=== PATIENT | male | born 1930 | race Caucasian/White ===

== ENCOUNTER 2017-03-08 17:29 | Emergency (ER) | payer MEDICARE ==
[2017-03-08] MEDS ORDERED: PROP150T PO (17:54)
[2017-03-08] MEDS ORDERED: PRAD150C PO (17:54)
[2017-03-08] MEDS ORDERED: LUPR45IN IM (17:54)
[2017-03-08] MEDS ORDERED: CALC600T60 PO (17:54)
[2017-03-08] MEDS ORDERED: XGEVINJ SC (17:54)
[2017-03-08] MEDS ORDERED: BENA40TA7 PO (17:54)
[2017-03-08] MEDS ORDERED: ALDA25TA PO (17:54)
[2017-03-08] MEDS ORDERED: ATOR40TA75 PO (17:54)
[2017-03-08 18:25] LABS: BASO % 0.4 % (0.0-1.0); EOS # 0.1 K/mm3 (0.0-0.50); EOS % 1.8 % (0.0-3.0); LARGE UNSTAINED CELL # 0.1 K/mm3 (0.0-0.4); LYMPH # 1.8 K/mm3 (1.5-4.5); LYMPH % 34.3 % (24.0-44.0); MEAN CORPUSCULAR HEMOGLOBIN 32.9 pg (27.0-33.0); MEAN CORPUSCULAR VOLUME 93.9 fl (80.0-96.0); MONO # 0.3 K/mm3 (0.0-0.8); MONO % 5.8 % (0.0-5.0); NEUTROPHILS # 2.9 K/mm3 (1.8-7.7); NEUTROPHILS % 55.8 % (36.0-66.0); RED CELL DISTRIBUTION WIDTH 12.3 % (11.5-14.5); WHITE BLOOD COUNT 5.2 K/mm3 (4.0-10.0)
[2017-03-08 18:26] LABS: PLATELET COUNT, AUTOMATED 46 k/mm3 (150-450)
--- NOTE | 2017-03-08 18:33 | REP ---
Clinical: Cough and dyspnea . Comparison: 01/21/2006 . Technique: PA and lateral. Findings: The mediastinum and cardiac silhouette are normal. The lung delatorre are clear and without acute consolidation, effusion, or pneumothorax. The skeletal structures are intact and normal. Impression: 1. No acute cardiopulmonary process. Signed by Terry Estes MD 03/08/2017 06:25 P
[2017-03-08 18:37] LABS: ANION GAP 9 MEQ/L (8-16); BLOOD UREA NITROGEN 19 MG/DL (7-18); CALCIUM LEVEL 9.4 MG/DL (8.8-10.2); CARBON DIOXIDE LEVEL 23 MEQ/L (21-32); CHLORIDE LEVEL 108 MEQ/L (98-107); CREATININE FOR GFR 0.81 MG/DL (0.70-1.30); GLOMERULAR FILTRATION RATE > 60.0 (>35); GLUCOSE, FASTING 95 MG/DL (83-110); SODIUM LEVEL 140 MEQ/L (136-145)
[2017-03-08] MEDS ORDERED: BENAZEPRIL 20 MG TAB PO ONE (19:30)
[2017-03-08 19:42] VITALS: BP 191/83
[2017-03-08 23:20] VITALS: BP 191/78
--- NOTE | 2017-03-09 05:56 | ECGEPIP ---
Stationary ECG Study [facility] - ED Test Date: 2017-03-08 Pat Name: GOOD MCCARTHY Department: Room: - Gender: M Veterinarian Helper: lissett : [id number] Requested By: JAMES MCNEILL Order Number: [id number] Reading MD: Emery Almanzar Measurements Intervals [place] Rate: 71 P: 48 [place]: 213 QRS: 1 QRSD: 94 T: -11 QT: 384 QTc: 417 Interpretive Statements SINUS RHYTHM WITH FIRST DEGREE AV BLOCK NSTTW ABNORMALITIES NO PRIORS Electronically Signed On 03-09-2017 5:56:41 EDT by Emery Almanzar
== END 2017-03-08 23:27 | disposition home or self-care (01) ==
LOC: M ED 17:29 → EDBD 17:29 → M ED 23:27
DX: R06.02 Shortness of breath (principal); I25.10 Atherosclerotic heart disease of native coronary artery without angina pectoris

== ENCOUNTER → 2018-12-26 | Outpatient (CLI) | payer MEDICARE ==
[~2018-12-26] MED LIST: ATOR40TA75 PO; BENA40TA7 PO; CALC600T60 PO; LUPR45IN IM; PRAD150C6 PO; PROP150T PO; SPIR1TAB34 PO; XGEVINJ SC
== END ==
LOC: M SMT 09:56
PROVIDERS: ATTEND Urology
DX: C61 Malignant neoplasm of prostate (principal)